=== PATIENT | male | born 1995 | race Two or more races ===

== ENCOUNTER 2018-05-04 13:40 | Emergency (ER) | payer SELFPAY ==
[~2018-05-04] VITALS: Ht 172.7 cm; Wt 63.5 kg
[2018-05-04 13:56] VITALS: BP 144/85
== END 2018-05-04 16:40 | disposition home or self-care (01) ==
LOC: ER 13:44
DX: S52.392A Other fracture of shaft of radius, left arm, initial encounter for closed fracture (principal); S80.02XA Contusion of left knee, initial encounter; S80.01XA Contusion of right knee, initial encounter; Z59.0 Homelessness; Y08.89XA Assault by other specified means, initial encounter; Y93.89 Activity, other specified; Y99.8 Other external cause status; Y92.89 Other specified places as the place of occurrence of the external cause
CPT/HCPCS: 73090